=== PATIENT | male | born 1975 | race Caucasian/White ===

== ENCOUNTER 2022-06-29 07:37 | Outpatient (CLI) | payer OTHER, SELFPAY ==
[2022-06-29 18:45] LABS: Basophils Absolute Auto 0.1 K/mm3 (0.0-0.1); Basophils Percent Auto 0.9 % (0.2-1.2); Eosinophils Absolute Auto 0.3 K/mm3 (0-0.3); Eosinophils Percent Auto 3.6 % (0-4.4); Hematocrit 47.2 % (42.0-52.0); Hemoglobin 16.2 g/dL (14.0-18.0); Immature Granulocyte Absolute 0.02 K/mm3 (0.00-0.031); Immature Granulocyte Percent A 0.3 % (0-0.5); Lymphocytes Absolute Auto 1.84 K/mm3 (0.9-3.2); Lymphocytes Percent Auto 24.5 % (18.3-44.2); Mean Corpuscular HGB Conc 34.3 g/dl (32-36); Mean Corpuscular Volume 93.1 fl (80-100); Mean Platelet Volume 11.1 fl (7.4-10.4); Monocytes Absolute Auto 0.6 K/mm3 (0.1-0.6); Monocytes Percent Auto 7.6 % (2.6-8.5); Neutrophils Absolute Auto 4.7 K/mm3 (1.3-6.7); Neutrophils Percent Auto 63.1 % (45.5-73.1); Platelet Count Result 254 k/mm3 (150-375); Red Blood Count 5.07 M/mm3 (4.6-6.20); Red Cell Distribution Width 13.5 % (11.5-14.5); White Blood Count 7.5 K/mm3 (4.5-10.0)
[2022-06-29 19:52] LABS: Alanine Aminotransferase 49 U/L (6-50); Albumin Level 4.5 g/dL (3.5-5.1); Alkaline Phosphatase 68 U/L (38-126); Anion Gap 11 mmol/L (8-16); Aspartate Amino Transferase 78 U/L (17-59); Bilirubin,Total 0.7 mg/dL (0.2-1.3); Blood Urea Nitrogen 16 mg/dL (9-20); Calcium 9.6 mg/dL (8.4-10.2); Carbon Dioxide 25 mmol/L (22-30); Chloride 100 mmol/L (98-107); Cholesterol 177 mg/dL (0-200); Estimated Glomerular Filt Rate > 60; Glucose 88 mg/dL (65-110); HDL Direct 30 mg/dL; Potassium 4.3 mmol/L (3.4-5.0); Sodium 136 mmol/L (137-145); Triglycerides 132 mg/dL (<150)
[2022-06-29 19:59] LABS: LDL Cholesterol Direct 107 mg/dL
== END 2022-06-29 07:38 | disposition home or self-care (01) ==
PROVIDERS: PCP Family Medicine; Visit Provider Family Medicine
DX: Z00.00 Encounter for general adult medical examination without abnormal findings (principal)
CPT/HCPCS: 36415; 80053; 80061; 85025

== ENCOUNTER 2022-07-23 00:22 | Day surgery (SDC) | payer OTHER, SELFPAY ==
[2022-07-12 13:46] VITALS: BMI 35.8
[2022-07-23 09:44] VITALS: BP 142/87; PULSE 78; RESP 18; TEMP 36.4; O2SAT 98
[2022-07-23] MEDS: LACTATED RINGERS 1,000 ML 150 ML IV CONT (09:51)
--- NOTE | 2022-07-23 10:08 | P.HP_ITS ---
H&P: HPI History of Present Illness Date/Time: 07/23/22 10:08 Chief Complaint: Positive Cologuard. Narrative: This is a 46-year-old white male patient who presents for screening colonoscopy. Patient reports he has a strong family history of colon polyps. His father had colon polyps his sister states there are many people in the family that has had colon polyps. Patient recently had Cologuard test found to be positive. For this reason referred for colonoscopy. He denies any blood in his stools. His weight appetite bowel movements are normal. Review of Systems Review of Systems: Review of systems noncontributory. FORMERLY [facility] Past Medical History Medical History (Updated 07/23/22 @ 10:09 by Paolo Gresham MD) HTN (hypertension) Family History Family History (Updated 06/16/22 @ 15:30 by Altagracia Garcia MA) Father Heart disease Social History Social History Years smoked: 25 Smoking status: Current every day smoker Tobacco type: cigarettes and e-cigarettes/vaping Additional smoking assessment comments: Quit smoking cigarettes in 2017, smokes e cigarettes Alcohol intake: never Substance use: never Substance use type: does not use Living arrangements: with family Spiritual care concerns: No Meds Home Medications and Allergies Home Medications Medication Instructions Recorded Confirmed Type amlodipine 5 mg tablet 5 mg PO DAILY 06/16/22 07/12/22 History losartan 100 mg tablet 100 mg PO DAILY 06/16/22 07/12/22 History Allergies Allergy/AdvReac Type Severity Reaction Status Date / Time No Known Allergies Allergy Verified 07/23/22 09:43 Vital Signs Vital Signs - 24 hr 07/23/22 09:44 Temperature 97.5 F L Pulse Rate 78 Respiratory Rate 18 Blood Pressure 142/87 H Pulse Oximetry 98 Oxygen Delivery Room Air Exam Narrative: Physical exam reveals patient to be alert. Vital signs stable. HEENT exam is unremarkable. Patient is anicteric. Lungs are clear to auscultation and percussion. Heart is without murmur or extra sounds. Abdomen bowel sounds are present soft nontender with no organomegaly. Digital external rectal exam is normal. Assessment and Plan Assessment and plan (1) Positive colorectal cancer screening using Cologuard test: Code(s): R19.5 - Other fecal abnormalities Status: Acute Assessment and Plan: Patient found to have Cologuard test positive for this reason colonoscopy will be performed now because of family history for continued follow-up at 5 year intervals is encouraged. (2) Family history of colonic polyps: Code(s): Z83.71 - Family history of colonic polyps Status: Acute Assessment and Plan: Patient's father and other family members have had colon polyps. Plan is for surveillance colonoscopy now and consider this in the future at 5 year in [facility].
--- NOTE | 2022-07-23 10:10 | WPDANESEPPF ---
Anes - Initial Pre Proc Eval Procedure: Operation Date: 07/23/22 10:00 Proposed Procedures p Colonoscopy - Paolo Gresham MD Date/Time: 07/23/22 10:11 Surgeon: Paolo Gresham MD Pre Op Diagnosis: positive cologuard Patient Data Age: 46 Gender: M Height: 1.93 m Weight: 133.1 kg Last Vital Signs Temp 97.5 F L 07/23/22 09:44 Pulse 78 07/23/22 09:44 Resp 18 07/23/22 09:44 BP 142/87 H 07/23/22 09:44 Pulse Ox 98 07/23/22 09:44 O2 Del Method Room Air 07/23/22 09:44 Allergies Allergy/AdvReac Type Severity Reaction Status Date / Time No Known Allergies Allergy Verified 07/23/22 09:43 Home Medications Medication Instructions Recorded Confirmed Type amlodipine 5 mg tablet 5 mg PO DAILY 06/16/22 07/12/22 History losartan 100 mg tablet 100 mg PO DAILY 06/16/22 07/12/22 History Patient hx anesthesia problems: none Family hx anesthesia problems: none Results Review: All pre-operative results and documents have been reviewed as part of the pre-operative evaluation. [facility] Past Medical History Medical History (Updated 07/23/22 @ 10:09 by Paolo Gresham MD) HTN (hypertension) Family History Family History (Updated 06/16/22 @ 15:30 by Altagracia Garcia MA) Father Heart disease Social History Social History Years smoked: 25 Smoking status: Current every day smoker Tobacco type: cigarettes and e-cigarettes/vaping Additional smoking assessment comments: Quit smoking cigarettes in 2017, smokes e cigarettes Alcohol intake: never Substance use: never Substance use type: does not use Living arrangements: with family Spiritual care concerns: No Anes - Eval Final PreProcedure Day of Procedure 07/23/22 10:11 Patient weight: obese Heart: regular rate and rhythm Lungs: clear to auscultation Airway: Mallampati scale class III Neurological: alert and oriented Last oral intake: >/= 8 hours ASA classification: III Emergent: no Anesthetic plan: proceed Anesthesia type and monitoring: general GIVS and standard monitoring Results Review: All pre-operative results and documents have been reviewed as part of the pre-operative evaluation. Informed Consent: The patient's anesthetic plan and its attendant risks and benefits were discussed with the patient/family/POA. Questions were solicited and answers provided to the satisfaction of the patient/family/POA.
[2022-07-23 10:38] VITALS: BP 134/83; PULSE 80; RESP 20; O2SAT 95
[2022-07-23 10:48] VITALS: BP 137/89; PULSE 74; RESP 17; O2SAT 97
[2022-07-23 10:58] VITALS: BP 142/99; PULSE 68; RESP 17; O2SAT 98
== END 2022-07-23 11:12 | disposition home or self-care (01) ==
PROVIDERS: PCP Family Medicine; Visit Provider Internal Medicine Gastroenterology
PROC: 0DJD8ZZ Inspection of Lower Intestinal Tract, Via Natural or Artificial Opening Endoscopic (ICD-10-PCS; CPT 45378; principal; 2022-07-23 10:00)
DX: D12.8 Benign neoplasm of rectum (principal); Z83.71 Family history of colonic polyps; K64.8 Other hemorrhoids; I10 Essential (primary) hypertension; F17.210 Nicotine dependence, cigarettes, uncomplicated; E66.9 Obesity, unspecified; Z68.35 Body mass index [BMI] 35.0-35.9, adult
CPT/HCPCS: 45385; 88305; J2704; J7120

== ENCOUNTER 2022-12-30 14:29 | Outpatient (CLI) | payer OTHER, SELFPAY ==
--- NOTE | ~2022-12-30 | XR_ITS ---
EXAMINATION: XR lumbar spine 2-3V DATE: 12/30/2022 14:43 INDICATION: Chronic low back pain. TECHNIQUE: 3 views of lumbar spine were obtained. COMPARISON: None. FINDINGS: There is 12 degrees levoscoliosis of lumbar spine. There is 3 mm retrolisthesis of L4 on L5 . There is mildly decreased disc height at L4-L5 and L5-S1. There is moderate to severe facet joint o steoarthritis in lower lumbar spine. IMPRESSION: 1. Mild lumbar spondylosis. 2. Lumbar levoscoliosis. Reviewed, dictated and finalized at location A. [employer]
== END 2022-12-30 14:30 | disposition home or self-care (01) ==
LOC: ANHBWCIMG 14:31
PROVIDERS: PCP Family Medicine; Visit Provider Family Medicine
DX: M47.816 Spondylosis without myelopathy or radiculopathy, lumbar region (principal); M41.9 Scoliosis, unspecified
CPT/HCPCS: 72100

== ENCOUNTER 2023-03-30 07:36 | Outpatient (CLI) | payer OTHER, SELFPAY ==
--- NOTE | ~2023-03-30 | XR_ITS ---
Left Knee Technique: AP, lateral, and sunrise views were obtained. Clinical History: Pain Findings: No fracture or dislocation is seen. Osseous alignment is anatomic. Minimal patellar spurrin g is present. Chondrocalcinosis of the menisci noted. No joint effusion is seen. Impression: Minimal patellar spurring. Chondrocalcinosis of the menisci. Reviewed, dictated and finalized at location . Impression: Minimal patellar spurring. Chondrocalcinosis of the menisci.
== END 2023-03-30 07:37 | disposition home or self-care (01) ==
LOC: ANHBWCIMG 07:37
PROVIDERS: PCP Family Medicine; Visit Provider Family Medicine
DX: M25.562 Pain in left knee (principal)
CPT/HCPCS: 73562

== ENCOUNTER 2023-05-13 06:57 | Outpatient (CLI) | payer OTHER, SELFPAY ==
--- NOTE | ~2023-05-13 | MR_ITS ---
MRI of the lumbar spine Clinical History: Back pain Technique: Axial T2-weighted images, and sagittal T1-weighted, T2-weighted, and T2 fat-sat images wer e acquired. Findings: There is no fracture or subluxation of lumbar spine. Vertebral bodies maintain normal heigh t and alignment. No suspicious bone marrow signal abnormality seen. At L1-L2, there is no disc bulge or herniation. No spinal canal stenosis or neural foraminal narrowin g. There is mild facet arthropathy. At L2-L3, there is minimal disc bulge and mild to moderate facet arthropathy. No central canal stenos is or neural foraminal narrowing. At L3-L4, there is minimal disc bulge with moderate to advanced facet arthropathy. No central canal s tenosis or neural foraminal narrowing. At L4-L5, there is disc bulge and probable superimposed left paracentral disc extrusion. There is mod erate facet arthropathy. There is bilateral lateral recess stenosis, left worse than right. There is moderate left neural foraminal narrowing and minimal right neural foraminal narrowing. At L5-S1, there is a central right paracentral disc extrusion, with moderate facet arthropathy and mi ld underlying diffuse disc bulge. There is no agatha central canal stenosis. There is right lateral re cess stenosis with severe right neural foraminal narrowing. There is mild left neural foraminal narro wing. Paravertebral soft tissues are unremarkable. Impression: Right paracentral disc extrusion at L5-S1, with right lateral recess stenosis and severe right neural foraminal narrowing. Probable left paracentral disc extrusion at L4-L5, with bilateral lateral recess stenosis and bilater al neural foraminal narrowing, as detailed above. Reviewed, dictated and finalized at [facility]. Impression: Right paracentral disc extrusion at L5-S1, with right lateral recess stenosis a nd severe right neural foraminal narrowing. Probable left paracentral disc extrusion at L4-L5, with bilateral lateral reces s stenosis and bilateral neural foraminal narrowing, as detailed above.
== END 2023-05-13 06:58 | disposition home or self-care (01) ==
PROVIDERS: PCP Family Medicine; Visit Provider Family Medicine
DX: M51.26 Other intervertebral disc displacement, lumbar region (principal); M51.27 Other intervertebral disc displacement, lumbosacral region
CPT/HCPCS: 72148

== ENCOUNTER 2023-09-09 07:48 | Outpatient (CLI) | payer OTHER, SELFPAY ==
--- NOTE | 2023-09-09 08:05 | ECG_ITS ---
Measurements Intervals [facility] Rate: 67 P: -6 WA: 169 QRS: -34 QRSD: 157 T: 9 QT: 394 QTc: 416 Interpretive Statements SINUS RHYTHM MARKED LEFT AXIS DEVIATION [QRS AXIS < -30] RIGHT BUNDLE BRANCH BLOCK [120+ ms QRS DURATION, UPRIGHT V1, 40+ ms S IN I/aVL/V4/V5/V6] POSSIBLE LEFT VENTRICULAR HYPERTROPHY [VOLTAGE CRITERIA PLUS LAE OR QRS WIDENING] NO PREVIOUS ECG AVAILABLE FOR COMPARISON Electronically Signed On 09-09-2023 13:34:24 CDT by Medina Bardales MD
[2023-09-09 08:36] LABS: Hemoglobin 16.4 g/dL (14.0-18.0); Mean Corpuscular HGB Conc 34.2 g/dl (32-36); Mean Corpuscular Hemoglobin 31.5 pg (26-34); Mean Corpuscular Volume 92.3 fl (80-100); Mean Platelet Volume 10.5 fl (7.4-10.4); Platelet Count Result 198 k/mm3 (150-375); Red Cell Distribution Width 13.2 % (11.5-14.5); White Blood Count 7.1 K/mm3 (4.5-10.0)
[2023-09-09 08:37] LABS: Anion Gap 8 mmol/L (8-16); Blood Urea Nitrogen 14 mg/dL (9-20); Calcium 9.2 mg/dL (8.4-10.2); Carbon Dioxide 28 mmol/L (22-30); Chloride 103 mmol/L (98-107); Estimated Glomerular Filt Rate > 60; Glucose 106 mg/dL (65-110); Potassium 4.2 mmol/L (3.4-5.0); Sodium 139 mmol/L (137-145)
[2023-09-09 08:38] LABS: Appearance Urine Clear (Clear); Bilirubin Urine Negative (Negative); Blood Urine Negative (Negative); Color Urine Yellow (Yellow); Glucose Urine UA Negative (Negative); Ketones Urine Negative (Negative); Leukocyte Esterase Ur Negative LEU/UL (Negative); Nitrate Urine Negative (Negative); Protein Urine Negative (Negative); Specific Grav Ur 1.015 (1.001-1.035); Urobilinogen Urine 0.2 mg/dL (<2.0); pH Urine 5.5 (5.0-9.0)
[2023-09-09 08:40] LABS: Partial Thromboplastin Time 25.8 SECONDS (22.3-36.8); Prothrombin Time 13.3 Seconds (11.1-14.7)
[2023-09-09 09:06] LABS: Add Urine Microscopic? NO
== END 2023-09-09 07:49 | disposition home or self-care (01) ==
LOC: ANHSURGERY 07:52
PROVIDERS: PCP Family Medicine; Visit Provider Neurological Surgery
DX: Z01.818 Encounter for other preprocedural examination (principal); M51.26 Other intervertebral disc displacement, lumbar region
CPT/HCPCS: 36415; 80048; 81003; 85027; 85610; 85730; 93005

== ENCOUNTER 2023-09-15 01:29 | Day surgery (SDC) | payer OTHER, SELFPAY ==
[2023-09-06 13:15] VITALS: BMI 37.8
--- NOTE | 2023-09-06 13:22 | PC.NURSE ---
Report to the Outpatient Waiting Room, entrance under the green pavilion located off [facility], at time _0600_ on date _[id number]_. Planned Procedure Time: _0800_. Time changes happen often and if your time is changed the preop area will call you the afternoon before. - You and your visitor will be asked to self-screen and do not enter if you have any COVID symptoms. - A mask is optional within the hospital at this time. Patients may have clear liquids (water, carbonated beverages, clear teas, apple juice) until 3 hours prior to surgery with a maximum of 20 ounces. - No food from midnight until time of surgery Take the following medications with a SIP of water the morning of surgery: ____Amlocipine, and Pregabalin DO NOT STOP ANY OF YOUR OTHER PRESCRIPTION MEDICATIONS PRIOR TO SURGERY ?EXCEPT THE FOLLOWING Medications to discontinue per physician None Date to take last dose Please no make-up, nail belarusian, hairspray, perfume, deodorant, or body powder the day of surgery. No jewelry (including any body piercings) or valuables the day of surgery, leave them at home. Please take a shower or bath the night before, or the morning of, surgery with an antibacterial soap. Wear comfortable, loose fitting clothing. - Jewelry must be removed prior to entering the operating room. Rings and piercings that are not removed may be cut off. - The hospital will not accept responsibility for valuables. - Please leave all valuables, including medications, at home the day of surgery. If you are going home after surgery, a licensed [employer] flatbed driver must drive you home. - NO public transportation without another adult if you receive anesthesia. - We recommend that an adult stay with you for 24 hours following discharge. - We also recommend that you do not drive, make important decision, drink alcoholic beverages, or take any drugs that were not prescribed by your health care provider for at least 24 hours after your discharge time. Follow any additional instructions given to you from your surgeon. If you or anyone in your household have experienced Covid symptoms in the past week, please notify your surgeon or the nurse liaison at the phone number below for possible testing. Telephone instructions given to _Sheila patient's wife_and asked if any additional questions and then verbalized understanding. Patient advised to call surgeon office or pre surgery nurse liaison [phone] if any additional questions.
--- NOTE | 2023-09-14 14:21 | P.PNAN_ITS ---
Anes - Initial Pre Proc Eval Procedure: Operation Date: 09/15/23 08:00 Proposed Procedures p Left L4-5 Microdiscectomy - Jorge Leonard MD Date/Time: 09/14/23 14:21 Surgeon: Jorge Leonard MD Pre Op Diagnosis: left L4-5 HNP Patient Data Age: 48 Gender: M Height: 1.93 m Weight: 140.9 kg Allergies Allergy/AdvReac Type Severity Reaction Status Date / Time No Known Allergies Allergy Verified 09/15/23 06:16 Home Medications Medication Instructions Recorded Confirmed Type amlodipine 5 mg tablet 5 mg PO DAILY #90 tabs 05/31/23 09/06/23 Rx losartan 100 mg tablet 100 mg PO DAILY #90 tabs 05/31/23 09/06/23 Rx pregabalin 150 mg capsule (Lyrica) 150 mg PO BID #60 caps 08/09/23 09/06/23 Rx Patient hx anesthesia problems: none Family hx anesthesia problems: none Results Review: All pre-operative results and documents have been reviewed as part of the pre- operative evaluation. [facility] Past Medical History Medical History (Updated 09/14/23 @ 14:21 by Dougie Oquendo DO) Asthma Elevated liver enzymes HTN (hypertension) Sleep apnea Family History Family History Father Heart disease Social History Social History (Updated 08/01/23 @ 15:53 by Carlotta Rodrigez) Smoking packs per day: 1 Smoking cigarettes per day: 20.0 Years smoked: 16 Smoking pack-years: 16.00 Smoking status: Former smoker Tobacco type: cigarettes and e-cigarettes/vaping Smoking end date: 09/06/10 Additional smoking assessment comments: Vaping since quit smoking cigarettes. Alcohol intake: never Substance use: never Substance use type: does not use Lack of Transportation: No Lack of Food: Never True Current Housing: I Have Housing Concerned About Future Housing: No Difficulty Paying Gas/Electric Bills: No Difficulty Paying for Meds: No Currently Unemployed: No Education: High School Diploma/GED Difficulty w/ Childcare or Family Care: No Living arrangements: with family Spiritual care concerns: No Anes - Eval Final PreProcedure Day of Procedure 09/14/23 14:21 Patient weight: obese Heart: regular rate and rhythm Lungs: clear to auscultation Airway: Mallampati scale class II Neurological: alert and oriented Last oral intake: >/= 8 hours ASA classification: III Emergent: no Anesthetic plan: proceed Anesthesia type and monitoring: general ETT and standard monitoring Results Review: All pre-operative results and documents have been reviewed as part of the pre- operative evaluation. Informed Consent: The patient's anesthetic plan and its attendant risks and benefits were dis cussed with the patient/family/POA. Questions were solicited and answers provided to the satisfaction of the patient/family/POA.
[2023-09-15] VITALS (9 sets, daily range): BP systolic 126–151; BP diastolic 82–95; PULSE 63–77; RESP 15–24; TEMP 36.2–36.7; O2SAT 92–100
--- NOTE | ~2023-09-15 | XR_ITS ---
EXAMINATION: XR fluoroscopy no charge DATE: 09/15/2023 12:59 INDICATION: Microdiscectomy TECHNIQUE: Single lateral fluoroscopic images of the lower lumbar spine and upper sacrum were obtaine d during procedure performed by Dr. Leonard. Radiologist was not present for the imaging or procedur e. The amount of fluoroscopy time used during this procedure was 0.1 minutes. COMPARISON: 01/09/2023 FINDINGS/IMPRESSION: The tip of a metallic instrument projects over the posterior margin of the L4-L5 disc space. See proc edure note for further detail. Reviewed, dictated and finalized at location A.
[2023-09-15] MEDS: LACTATED RINGERS 1,000 ML 30 ML IV CONT ×2 (06:54→10:09)
--- NOTE | 2023-09-15 07:53 | PM.IMHP ---
H&P: HPI History of Present Illness Date/Time: 09/15/23 07:53 Chief Complaint: Back and leg pain Narrative: Stevie is a 48-year-old gentleman with a left L5 radiculopathy related with L4-5 herniated disc presents now for decompression. He has not changed appreciably since we last saw him. He does not have specific muscle group weakness of dermatomal numbness. He is not having bowel or bladder difficulty. Review of Systems Review of Systems: Patient denies shortness of breath, cough, fever, chills, nausea, vomiting, weight loss, weight gain, chest pain, dysuria. He has back and leg pain as above. His review of systems is otherwise negative on 12 systems except as noted elsewhere. [facility] Past Medical History Medical History (Updated 09/14/23 @ 14:21 by Dougie Oquendo, ) Asthma Elevated liver enzymes HTN (hypertension) Sleep apnea Family History Family History Father Heart disease Social History Social History (Updated 08/01/23 @ 15:53 by Carlotta Rodrigez) Smoking packs per day: 1 Smoking cigarettes per day: 20.0 Years smoked: 16 Smoking pack-years: 16.00 Smoking status: Former smoker Tobacco type: cigarettes and e-cigarettes/vaping Smoking end date: 09/06/10 Additional smoking assessment comments: Vaping since quit smoking cigarettes. Alcohol intake: never Substance use: never Substance use type: does not use Lack of Transportation: No Lack of Food: Never True Current Housing: I Have Housing Concerned About Future Housing: No Difficulty Paying Gas/Electric Bills: No Difficulty Paying for Meds: No Currently Unemployed: No Education: High School Diploma/GED Difficulty w/ Childcare or Family Care: No Living arrangements: with family Spiritual care concerns: No Meds Home Medications and Allergies Home Medications Medication Instructions Recorded Confirmed Type amlodipine 5 mg tablet 5 mg PO DAILY #90 tabs 05/31/23 09/06/23 Rx losartan 100 mg tablet 100 mg PO DAILY #90 tabs 05/31/23 09/06/23 Rx pregabalin 150 mg capsule (Lyrica) 150 mg PO BID #60 caps 08/09/23 09/06/23 Rx Allergies Allergy/AdvReac Type Severity Reaction Status Date / Time No Known Allergies Allergy Verified 09/15/23 06:16 Vital Signs Vital Signs - 24 hr 09/15/23 07:10 Temperature 98.1 F Pulse Rate 77 Respiratory Rate 16 Blood Pressure 143/95 H Pulse Oximetry 96 Oxygen Delivery Room Air Exam Narrative: Strength is 5/5 in all muscle groups of the bilateral lower extremities. Sensation is intact to light touch throughout the lower extremities. Breathing is nonlabored Regular rate and rhythm Assessment and Plan Assessment and plan (1) Lumbar disc herniation: Code(s): M51.26 - Other intervertebral disc displacement, lumbar region Status: Acute Assessment and Plan: Stevie is a 48-year-old gentleman with a left L5 radiculopathy related to an L4-5 herniated disc presents for left L4-5 microdiskectomy. I described to him again that operation, its risks, potential benefits, the operative and postoperative course in detail and answered all his questions personally. He indicates understanding and elects proceed with that operation.
--- NOTE | 2023-09-15 07:59 | WPDHPUPDATE1 ---
History and Physical Update Update Date/Time: 09/15/23 07:59 History and Physical has been reviewed, including an updated exam of the patient. There are NO changes in the patient's condition. Risks, benefits, and alternatives have been discussed and questions answered. Patient agrees to proceed with procedure.
[2023-09-15] MEDS: ceFAZolin 3 GM/D5W 100 ML 100 ML IVPB (08:30)
[2023-09-15] MEDS: LIDO 1%/EPINEPHRINE 1:100,000 50 ML VIAL 10 ML INFILTRATE (09:08)
--- NOTE | 2023-09-15 10:11 | W.PM.PROC2 ---
Procedure Note - Detailed Date of Procedure 09/15/23 Pre-op Diagnosis Recurrent left L4-5 HNP Post-op Diagnosis Same Procedure Performed Redo left L4-5 microdiskectomy Surgeon Jorge Leonard MD Anesthesia General Description of Procedure Patient was brought to the operating room in the supine position, was sedated, intubated placed under general anesthesia in routine fashion. He was entered into the prone position on a Kaushik frame. The of operations back was examined, marked for incision, prepped and draped in routine sterile fashion. Incision was marked over the L4-L5 spinous processes in the midline. This area was injected with 0.5% lidocaine with [id number] epinephrine. Intravenous antibiotics given prior to incision. Incision was made with a 10 blade scalpel down to the lumbodorsal fascia. Subperiosteal dissection the muscle and soft tissue away from spinous process and lamina at L4-5 on the left was performed with a subperiosteal elevator and Bovie cautery. A verifying x-rays obtained to verify the level of operation. The previous hemilaminectomy defect was circumscribed with a curved curette. Midas-Kanu drill was used to remove additional of bone superiorly and medially. A curved curette was used to define a plane soft tissue of the canal. Kerrison punches were used to remove the additional bone ligament. Thecal sac could then be retracted medially. A nerve hook was used to discover free fragments underneath the scar underneath the nerve. These were removed with a series of maneuvers utilizing the nerve hook, Loretta curette, Ni rongeur and curved curette. This was done until a nerve hook could be placed below the nerve to confirm lack of compression. The wound was then copiously irrigated with bacitracin irrigation all bleeding stopped with bipolar Bovie cautery and Gelfoam thrombin powder. The wound was then closed in layered fashion with 2-0 Vicryl interrupted sutures in the lumbodorsal fascia and Prabhakar's layer. 3-0 Vicryl buried interrupted sutures were placed in the dermis and the skin was closed with a running 4-0 Monocryl subcuticular stitch and dressed with Dermabond. The patient was allowed to come out from general anesthesia in the operating room and was taken to the recovery room in stable condition. There were no immediate complications of this operation. All counts were reported correct in case. Blood loss was 25 cc. The patient was neurologically at his baseline postoperatively. CPT codes: 37652 Estimated Blood Loss 25 IV Fluids 1,000 Complications None Condition Stable Disposition PACU [facility] Billing Surgery - Charge Forward: Surgery Billing
--- NOTE | 2023-09-15 11:31 | PM.PNORT ---
Subjective Subjective Date/Time Seen: 09/15/23 11:31 Review of Systems Review of Systems: DONALD BEACH M.D. [facility], [address] [address] POST OPERATIVE DISCHARGE INSTRUCTIONS FOLLOWING SHOULDER ARTHROSCOPY * (When done without Rotator Cuff Repair) Your arthroscopic procedure was performed with special micro-instruments. Following your procedure, it is important that you read, understand, and carry out the following instructions. 1. Ice the shoulder frequently for 20 minute intervals 3-4 times each day, particularly the first 3 days. 2. The wounds should be kept clean and dry until they have sealed over. Two days following your surgery, you can remove the dressing and cover the puncture wounds with band-aids. Do not get the wound wet. Change the band-aids every day. 3. Extremity/shoulder exercises as instructed per Physical Therapy. These include Active Assistive Range of Motion-hand, wrist, elbow and cane exercises twice a day. 4. Diet as tolerated. 5. Wear sling according to post op instructions. 6. Continue home medications as prescribed. Use the pain medication prescribed as needed. If the pain medicine does not provide adequate relief, please call your surgeon. 7. Do not drive or operate machinery for 24 hours due to the medication received. 8. Your follow-up appointment is in 2 weeks. Please call office to confirm. 9. For problems during office hours call the above office number. When the office is closed, call the office and an emergency number will be given to you. 10. Additional instructions: Formulated: March 2005 Rev. 07/04 Objective Data Vital Signs Vital Signs: Vital Signs - 24 hr 09/15/23 07:10 09/15/23 10:09 09/15/23 10:15 Temperature 36.7 C 36.4 C L Pulse Rate 77 64 63 Respiratory Rate 16 24 H 20 Blood Pressure 143/95 H 136/82 126/82 Pulse Oximetry 96 92 100 Oxygen Delivery Room Air Simple Face Mask Simple Face Mask Oxygen Flow Rate 8 8 09/15/23 10:30 09/15/23 10:35 09/15/23 10:45 Temperature 36.2 C L Pulse Rate 63 67 64 Respiratory Rate 16 20 15 Blood Pressure 128/87 127/84 126/85 Pulse Oximetry 100 94 95 Oxygen Delivery Simple Face Mask Room Air Room Air Oxygen Flow Rate 8 09/15/23 10:50 09/15/23 10:57 Temperature Pulse Rate 68 72 Respiratory Rate 20 Blood Pressure 127/84 141/90 H Pulse Oximetry 94 Oxygen Delivery Room Air Room Air Oxygen Flow Rate Intake/Output Intake/Output: Intake & Output 09/12/23 09/13/23 09/14/23 09/15/23 23:59 23:59 23:59 23:59 Intake Total 1300 Balance 1300 Meds/Results Medications: Active Medications Generic Name Dose Route Start Last Admin Trade Name Freq PRN Reason Stop Dose Admin Fentanyl Citrate 25 mcg 09/14/23 14:21 Fentanyl Citrate Inj (*Crx) 100 Mcg/2 Ml Vial IV PUSH Q2M PRN Pain Lactated Ringer's 1,000 m
== END 2023-09-15 11:53 | disposition home or self-care (01) ==
PROVIDERS: PCP Family Medicine; Visit Provider Neurological Surgery
PROC: (CPT 63030; principal; 2023-09-15 08:00)
DX: M51.16 Intervertebral disc disorders with radiculopathy, lumbar region (principal); I10 Essential (primary) hypertension; F17.290 Nicotine dependence, other tobacco product, uncomplicated; E66.9 Obesity, unspecified; Z68.37 Body mass index [BMI] 37.0-37.9, adult
CPT/HCPCS: 63030; 36415; 80048; 81003; 85027; 85610; 85730; 93005; 99199; J0330; J0690; J1100; J1170; J2250; J2405; J2704; J3010; J7120

== ENCOUNTER 2023-10-10 10:29 | Outpatient (CLI) | payer OTHER, SELFPAY ==
--- NOTE | ~2023-10-10 | XR_ITS ---
XR ankle LT 2V 10/10/2023 10:47 Indication: Left ankle pain Procedure: 4 views left ankle Comparison: No prior studies for comparison. Findings: No fracture, subluxation or dislocation. There is a degenerative calcaneal enthesophyte. An kle mortise intact. Talar dome is normal. Impression: 1: No acute bone or joint abnormality. Reviewed, dictated and finalized at location B. 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
--- NOTE | ~2023-10-10 | XR_ITS ---
EXAMINATION: XR foot LT 2V DATE: 10/10/2023 10:47 INDICATION: Nontraumatic left foot pain and paresthesias TECHNIQUE: Dorsoplantar and lateral views of the left foot were obtained. COMPARISON: None. FINDINGS: Alignment is normal. No acute fracture. Is bilateral cortical thickening at the distal diaphysis of t he left third metatarsal suggesting sequela of old healed fracture or stress injury. Mild osteoarthri tis at the first metatarsophalangeal and a few distal interphalangeal joints. Small plantar calcaneal spur. Soft tissues are unremarkable. IMPRESSION: 1. Likely old healed fracture or stress injury at the third metatarsal diaphysis. No acute osseous ab normality. 2. 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 Reviewed, dictated and finalized at location A. PING LEAD IMPRESSION: 1. Likely old healed fracture or stress injury at the third metatarsal diaphysi s. No acute osseous abnormality. 2. 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
== END 2023-10-10 10:30 | disposition home or self-care (01) ==
LOC: ANHBWCIMG 10:30
PROVIDERS: PCP Family Medicine; Visit Provider Family Medicine
DX: M79.673 Pain in unspecified foot (principal); M54.10 Radiculopathy, site unspecified
CPT/HCPCS: 73600; 73620

== ENCOUNTER 2024-02-16 07:18 | Outpatient (CLI) | payer OTHER, SELFPAY ==
[2024-02-16 19:06] LABS: Alanine Aminotransferase 39 U/L (6-50); Albumin Level 4.2 g/dL (3.5-5.1); Alkaline Phosphatase 68 U/L (38-126); Anion Gap 7 mmol/L (4-12); Aspartate Amino Transferase 48 U/L (17-59); Bilirubin,Total 0.7 mg/dL (0.2-1.3); Blood Urea Nitrogen 18 mg/dL (9-20); Calcium 9.5 mg/dL (8.4-10.2); Carbon Dioxide 27 mmol/L (22-30); Chloride 105 mmol/L (98-107); Cholesterol 161 mg/dL (0-200); Estimated Glomerular Filt Rate > 60; Glucose 92 mg/dL (65-110); HDL Direct 31 mg/dL; Potassium 4.4 mmol/L (3.4-5.0); Sodium 139 mmol/L (137-145); Triglycerides 137 mg/dL (<150)
[2024-02-16 19:21] LABS: LDL Cholesterol Direct 113 mg/dL
[2024-02-16 19:29] LABS: Basophils Absolute Auto 0.1 K/mm3 (0.0-0.1); Basophils Percent Auto 0.9 % (0.2-1.2); Eosinophils Absolute Auto 0.2 K/mm3 (0-0.3); Eosinophils Percent Auto 2.8 % (0-4.4); Hematocrit 49.1 % (42.0-52.0); Hemoglobin 16.5 g/dL (14.0-18.0); Immature Granulocyte Absolute 0.03 K/mm3 (0.00-0.031); Immature Granulocyte Percent A 0.4 % (0-0.5); Lymphocytes Absolute Auto 1.95 K/mm3 (0.9-3.2); Lymphocytes Percent Auto 25.7 % (18.3-44.2); Mean Corpuscular HGB Conc 33.6 g/dl (32-36); Mean Corpuscular Hemoglobin 31.9 pg (26-34); Mean Platelet Volume 11.2 fl (7.4-10.4); Monocytes Absolute Auto 0.7 K/mm3 (0.1-0.6); Monocytes Percent Auto 8.7 % (2.6-8.5); Neutrophils Absolute Auto 4.7 K/mm3 (1.3-6.7); Neutrophils Percent Auto 61.5 % (45.5-73.1); Platelet Count Result 217 k/mm3 (150-375); Red Blood Count 5.17 M/mm3 (4.6-6.20); White Blood Count 7.6 K/mm3 (4.5-10.0)
== END 2024-02-16 07:19 | disposition home or self-care (01) ==
LOC: ANHBWCLAB 07:20
PROVIDERS: PCP Nurse Practitioner Adult Health; Visit Provider Nurse Practitioner Adult Health
DX: I10 Essential (primary) hypertension (principal)
CPT/HCPCS: 36415; 80053; 80061; 85025